=== PATIENT | female | born 1995 | race Two or more races ===

== ENCOUNTER 2024-09-23 22:06 | Emergency (ER) | payer MEDICAID, OTHER ==
[~2024-09-23] VITALS: Ht 165.1 cm; Wt 103.6 kg
[2024-09-24 00:49] VITALS: BP 154/92; PULSE 99; RESP 18; TEMP 98.4; O2SAT 98
[2024-09-24] MEDS ORDERED: ACET500T58 PO (01:19)
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
== END 2024-09-24 02:13 | disposition home or self-care (01) ==
LOC: ER 22:12
DX: S20.219A Contusion of unspecified front wall of thorax, initial encounter (principal); I10 Essential (primary) hypertension; Z90.49 Acquired absence of other specified parts of digestive tract; Z98.890 Other specified postprocedural states; Z79.899 Other long term (current) drug therapy; V29.99XA Rider (driver) (passenger) of other motorcycle injured in unspecified traffic accident, initial encounter; Y93.89 Activity, other specified; Y92.488 Other paved roadways as the place of occurrence of the external cause; Y99.8 Other external cause status
CPT/HCPCS: 71046